=== PATIENT | male | born 1995 | race Caucasian/White ===

== ENCOUNTER 2018-07-24 22:04 | Inpatient (IN) | payer BC ==
[2018-07-24] MEDS ORDERED: ONDANSETRON 4 MG/2 ML VIAL IVP ONE (22:11)
[2018-07-24] MEDS ORDERED: NS 1,000 ML IV ONE ×2 (22:11)
--- NOTE | 2018-07-24 22:17 | EDPHY ---
H & P Stated Complaint: N/V, SYNCOPE Source: Patient - Personal History Current Tetanus Diphtheria and Acellular Pertussis (TDAP): Yes - Medical/Surgical History Other PMH: DENIES - Social History Smoking Status: Never smoked Time Seen by Provider: 07/24/18 22:16 HPI/ROS: HPI CHIEF COMPLAINT: Syncope HISTORY OF PRESENT ILLNESS: 23-year-old male, presents emergency room syncope. Patient was in the shower standing there is rather hot, felt like he was going to vomit and then had a syncopal episode he had head strike sustaining a right eyebrow laceration. Patient has been vomiting all day as well as diarrhea. This started around noon. He states multiple episodes of watery diarrhea and multiple episodes of nonbloody vomit. Some abdominal cramping. Also complains of some muscle aches and joint pain. No high fever. Denies chest pain or shortness of breath. No previous history of cardiac disease or syncope Past Medical History: Denies medical history Past Surgical History: No recent surgical history Social History: Denies drugs alcohol tobacco. Family History: Hypertension bother ROS REVIEW OF SYSTEMS: 10 Systems were reviewed and negative with the exception of the elements mentioned in the history of present illness. Exam Constitutional triage nursing summary reviewed, vital signs reviewed, awake/ alert. Eyes normal conjunctivae and sclera, EOMI, PERRLA. HENT normal inspection, atraumatic, moist mucus membranes, no epistaxis, neck supple/ no meningismus, no raccoon eyes. Respiratory clear to auscultation bilaterally, normal breath sounds, no respiratory distress, no wheezing. Cardiovascular rate normal, regular rhythm, no murmur, no edema, distal pulses normal. Gastrointestinal soft, non-tender, no rebound, no guarding, normal bowel sounds, no distension, no pulsatile mass. Genitourinary no CVA tenderness. Musculoskeletal no midline vertebral tenderness, full range of motion, no calf swelling, no tenderness of extremities, no meningismus, good pulses, neurovascularly intact. Skin pink, warm, & dry, no rash, skin atraumatic. Neurologic awake, alert and oriented x 3, AAOx3, moves all 4 extremities equally, motor intact, sensory intact, CN II-XII intact, normal cerebellar, normal vision, normal speech. Psychiatric normal mood/affect. Heme/Lymph/Immune no lymphadenopathy. Differential Diagnosis: Differential diagnosis includes but is not limited to: wpw, vasovagal syncope, dehydration. ACS, atypical chest pain, pneumothorax, pneumonia, pulmonary embolism, aortic dissection, congestive heart failure, tumor, musculoskeletal pain, esophageal pain, GERD, peptic ulcer disease, pancreatitis Medical Decision Making: Plan for this patient IV establishment IV fluid bolus , obtain EKG, electrolytes, CT scan head without contrast due to fall and trauma and head laceration, chest x-ray and re-evaluate. Re-evaluation: EKG interpretation by me on record in [employer] system. Impression time of EKG 2216, sinus tach [address] depression T-wave abnormalities inferior leads to 3 AVF abnormal T-wave inversions V1 V2 V3 ST depression V4 V5 V6 with T -wave inversion biphasic. Abnormal EKG no old EKG to compare this to. Dr. Sagastume with Cardiology consult reviewed this EKG agrees abnormal ekg. Plan for admission for syncope and abnormal EKG. Clinically most likely volume depleted. CT scan head without contrast negative for acute traumatic injury called to me by Dr. Pichardo. Chest x-ray reviewed negative. Patient's heart rate is coming down to 115. IV fluids. Blood work reviewed low magnesium. Will replete. Plan for admission the hospital for syncope an abnormal EKG. Cardiology has been consult. Patient updated. Laceration was repaired by [facility]ELDS. Consult the hospitalist service Dr. George Agrees to admit. Given that the patient has a positive D-dimer, abnormal EKG, tachycardia with syncope I have ordered a CT angiogram of the chest. Rule out pulmonary embolism. (Tu Bojorquez) Constitutional: Initial Vital Signs Temperature (C) 37.3 C 07/24/18 22:08 Heart Rate 139 H 07/24/18 22:08 Respiratory Rate 20 07/24/18 22:08 Blood Pressure 98/65 L 07/24/18 22:08 O2 Sat (%) 96 07/24/18 22:08 O2 Delivery Mode Room Air Allergies/Adverse Reactions: No Known Allergies Allergy (Unverified 07/24/18 22:07) Home Medications: Medication Instructions Recorded Acet/Caffeine/Buta Fioricet 1 each PO Q6 PRN #20 tab 07/26/18 [Fioricet (*)] Ondansetron Odt [Zofran Odt 4 mg 4 mg PO Q4 PRN #20 tab 07/26/18 (*)] Medical Decision Making Procedures: Procedure: Laceration repair. Verbal consent was obtained from the patient. The 2 cm, simple, superficial laceration on the inferior to the right eyebrow was not anesthetized in the usual fashion. The wound was irrigated, draped and explored to its base with a gloved finger. There were no deep structures involved. No tendon injury was identified. The wound was repaired with Dermabond. The procedure was performed by myself. (Jeni Alas) - Data Points Laboratory Results: Laboratory Results 07/25/18 03:14 07/25/18 03:14 Microbiology Results: MICROBIOLOGY 07/24/18 22:23 Blood Blood Culture - Preliminary 07/24/18 22:24 Blood Blood Culture - Preliminary Medications Given: Discontinued Medications Acetaminophen (Tylenol) 650 mg PO Q4HRS PRN PRN Reason: Pain, Mild/Fever, Can Take PO Stop: 01/20/19 23:18 Last Admin: 07/25/18 17:24 Dose: 650 mg Acetaminophen/Butalbital/Caffeine (Fioricet) 1 each PO Q6HRS PRN PRN Reason: Headache Stop: 08/04/18 19:01 Last Admin: 07/26/18 09:05 Dose: 1 each Sodium Chloride (Ns) 1,000 mls @ 0 mls/hr IV EDNOW ONE; Wide Open PRN Reason: Protocol Stop: 07/24/18 22:12 Last Admin: 07/24/18 22:20 Dose: 1,000 mls Sodium Chloride (Ns) 1,000 mls @ 0 mls/hr IV EDNOW ONE; Wide Open PRN Reason: Protocol Stop: 07/24/18 22:12 Last Admin: 07/24/18 22:20 Dose: 1,000 mls Magnesium Sulfate (Magnesium Sulf 2 Gm (Premix)) 50 mls @ 50 mls/hr IV EDNOW ONE Stop: 07/25/18 00:15 Last Admin: 07/24/18 23:31 Dose: 50 mls Sodium Chloride (Ns) 1,000 mls @ 75 mls/hr IV CONT LEV Stop: 01/20/19 23:29 Last Admin: 07/25/18 20:10 Dose: 1,000 mls Sodium Chloride (Ns) 500 mls @ 0 mls/hr IV ONCE ONE PRN Reason: Wide Open Stop: 07/25/18 01:51 Last Admin: 07/25/18 02:17 Dose: 500 mls Sodium Chloride (Ns) 500 mls @ 0 mls/hr IV ONCE ONE PRN Reason: Wide Open Stop: 07/25/18 03:55 Last Admin: 07/25/18 04:02 Dose: 500 mls Ondansetron HCl (Zofran) 4 mg IVP EDNOW ONE Stop: 07/24/18 22:12 Last Admin: 07/24/18 22:20 Dose: 4 mg Point of Care Test Results: Chemistry 07/24/18 22:27 POC Troponin I 0.01 ng/mL ng/mL (0.00-0.08) Departure - Departure Disposition: [facility] Inpatient Acute Clinical Impression: Abnormal EKG, Dehydration Syncope Qualifiers: Syncope type: unspecified Qualified Code(s): R55 - Syncope and collapse Laceration of head Qualifiers: Encounter type: initial encounter Location of open wound of head: periocular area Foreign body presence: without foreign body Laterality: right Qualified Code(s): S01.111A - Laceration without foreign body of right eyelid and periocular area, initial encounter Condition: Fair
[2018-07-24 22:34] LABS: PLATELET COUNT 180 10^3/uL (150-400)
[2018-07-24] MEDS ORDERED: SKIN ADHESIVE (DERMABOND) 1 EACH TP ONE (22:51)
[2018-07-24] MEDS ORDERED: MAGNESIUM SULF 2 GM/WATER 50 ML IV ONE (23:16)
[2018-07-24] MEDS ORDERED: ONDANSETRON 4 MG/2 ML VIAL IVP PRN (23:19)
[2018-07-24] MEDS ORDERED: ONDANSETRON DISINTEGRATING 4 MG TAB PO PRN (23:19)
[2018-07-25] MEDS ORDERED: IOPAMIDOL (ISOVUE 370) 100 ML BTL IV ONE (00:08)
[2018-07-25] MEDS ORDERED: NS 500 ML IV ONE ×2 (01:50→03:54)
--- NOTE | 2018-07-25 02:28 | PDGENHP ---
History and Physical - Chief Complaint Syncope - History of Present Illness 23 yo M presents after syncopal episode. He started feeling poorly earlier today. He noted mostly vomiting and diarrhea. He also noted fevers. He denies blood in his stool or vomit. He has had decreased PO intake. He was in the shower and suffered a syncopal episode. He denies chest pain with this. He feels improved after fluids but still feels a bit dizzy when he stands up. In the ED his ECG was significantly abnormal, so he is being admitted for observation. He has no prior personal history of cardiac disease although he does have positive family history. Case discussed with ED physician Dr. Michael; records reviewed and summarized above. History Information - Allergies/Home Medication List Allergies/Adverse Reactions: No Known Allergies Allergy (Unverified 07/24/18 22:07) Home Medications: NK [No Known Home Meds] 07/24/18 [Last Taken Unknown] I have personally reviewed and updated: family history, medical history - Past Medical History no pertinent PMH - Surgical History Additional surgical history: Oral surgery - Family History Positive for: CAD, hypertension - Social History Smoking Status: Never smoked Review of Systems Review of Systems: ROS: 10pt was reviewed & negative except for what was stated in HPI & below Physical Exam Physical Exam: Temp Pulse Resp BP Pulse Ox 38.0 C 104 H 16 135/56 H 93 07/25/18 01:37 07/25/18 01:37 07/25/18 01:37 07/25/18 01:37 07/25/18 01:37 Constitutional: not in pain Eyes: PERRL, EOMI Ears, Nose, Mouth, Throat: no oral mucosal ulcers Cardiovascular: no murmur, rub, or gallop, tachycardia Respiratory: no respiratory distress, clear to auscultation Gastrointestinal: normoactive bowel sounds, soft, non-tender abdomen Skin: warm, normal color Musculoskeletal: full muscle strength, no muscle tenderness Neurologic: AAOx3, CN II-XII Intact Psychiatric: interacting appropriately, not anxious Lab Data & Imaging Review 07/24/18 22:24 07/24/18 22:24 WBC 9.38 10^3/uL (3.80-9.50) 07/24/18 22:24 RBC 5.45 10^6/uL (4.40-6.38) 07/24/18 22:24 Hgb 16.5 g/dL (13.7-17.5) 07/24/18 22:24 Hct 46.9 % (40.0-51.0) 07/24/18 22:24 MCV 86.1 fL (81.5-99.8) 07/24/18 22:24 MCH 30.3 pg (27.9-34.1) 07/24/18 22:24 MCHC 35.2 g/dL (32.4-36.7) 07/24/18 22:24 RDW 11.9 % (11.5-15.2) 07/24/18 22:24 Plt Count 180 10^3/uL (150-400) 07/24/18 22:24 MPV 9.5 fL (8.7-11.7) 07/24/18 22:24 Neut % (Auto) 90.9 % (39.3-74.2) H 07/24/18 22:24 Lymph % (Auto) 3.2 % (15.0-45.0) L 07/24/18 22:24 [place] % (Auto) 5.0 % (4.5-13.0) 07/24/18 22:24 Eos % (Auto) 0.2 % (0.6-7.6) L 07/24/18: Baso % (Auto) 0.3 % (0.3-1.7) 07/24/18: Nucleat RBC Rel Count 0.0 % (0.0-0.2) 07/24/18 22:24 Absolute Neuts (auto) 8.53 10^3/uL (1.70-6.50) H 07/24/18 22:24 Absolute Lymphs (auto) 0.30 10^3/uL (1.00-3.00) L 07/24/18 22:24 Absolute Monos (auto) 0.47 10^3/uL (0.30-0.80) 07/24/18 22:24 Absolute Eos (auto) 0.02 10^3/uL (0.03-0.40) L 07/24/18 22:24 Absolute Basos (auto) 0.03 10^3/uL (0.02-0.10) 07/24/18 22:24 Absolute Nucleated RBC 0.00 10^3/uL (0-0.01) 07/24/18 22:24 Immature Gran % 0.4 % (0.0-1.1) 07/24/18 22:24 Immature Gran # 0.04 10^3/uL (0.00-0.10) 07/24/18 22:24 RBC/WBC/PLT Morphology TNP 07/24/18 22:24 Platelet Estimate TNP 07/24/18 22:24 D-Dimer 0.64 ug/mLFEU (0.00-0.50) H 07/24/18 22:24 Sodium 134 mEq/L (135-145) L 07/24/18 22:24 Potassium 4.0 mEq/L (3.5-5.2) 07/24/18 22:24 Chloride 101 mEq/L (97-110) 07/24/18 22:24 Carbon Dioxide 22 mEq/l (22-31) 07/24/18 22:24 Anion Gap 11 mEq/L (6-14) 07/24/18 22:24 BUN 18 mg/dL (7-23) 07/24/18 22:24 Creatinine 0.9 mg/dL (0.7-1.3) 07/24/18 22:24 Estimated GFR > 60 07/24/18 22:24 Glucose 122 mg/dL (70-100) H 07/24/18 22:24 Calcium 10.0 mg/dL (8.5-10.4) 07/24/18 22:24 Magnesium 1.4 mg/dL (1.6-2.3) L 07/24/18 22:24 Total Bilirubin 1.5 mg/dL (0.1-1.4) H 07/24/18 22:24 Conjugated Bilirubin 0.4 mg/dL (0.0-0.5) 07/24/18 22:24 Unconjugated Bilirubin 1.1 mg/dL (0.0-1.1) 07/24/18 22:24 AST 26 IU/L (17-59) 07/24/18 22:24 ALT 30 IU/L (21-72) 07/24/18 22:24 Alkaline Phosphatase 90 IU/L (38-126) 07/24/18 22:24 POC Troponin I 0.01 ng/mL (0.00-0.08) 07/24/18 22:27 Total Protein 8.1 g/dL (6.3-8.2) 07/24/18 22:24 Albumin 5.0 g/dL (3.5-5.0) 07/24/18 22:24 Lipase 55 IU/L (23-300) 07/24/18 22:24 Nasal Influenza A PCR NEGATIVE FOR FLU A (NEGATIVE) 07/24/18 22:20 Nasal Influenza B PCR NEGATIVE FOR FLU B (NEGATIVE) 07/24/18 22:20 Monoscreen NEGATIVE (NEGATIVE) 07/25/18 00:07 Imaging Review: Imaging Impressions Head CT 07/24/18 22:15 Impression: Normal noncontrast CT of the brain. Results called to Dr. Crow Michael at 10:45 PM at the time of the interpretation. Chest X-Ray 07/24/18 22:17 Impression: Negative portable chest. Assessment & Plan Assessment: 23 yo M w/ viral syndrome presents with syncope noted to have abnormal ECG. Plan: 1. Syncope - Most likely due to hypovolemia noting vomiting/diarrhea and poor PO intake. He continues to me mildly dizzy upon standing. His ECG, however, is markedly abnormal for a young healthy patient. ECG demonstrates (personally reviewed/interpreted) sinus tachycardia with diffuse ST depressions. The patient denies chest pain or palpitations. - Admit for observation - Monitor on telemetry - TTE ordered for further evaluation - Cardiology consulted in the ED (Dr. Sagastume), will see patient in the morning 2. Fever, vomiting, diarrhea - Most likely due to viral syndrome. - Continue IVF - Respiratory PCR, GI PCR, procalcitonin ordered 3. Hyponatremia - Mild, 2/2 dehydration. - Repeat BMP after IVF Diet - Regular Code - Full Ppx - Low risk, ambulate TID Dispo - Admit under observation status
[2018-07-25] MEDS: NS 1,000 ML IV SCH ×3 (03:42→20:10)
[2018-07-25 04:38] LABS: PLATELET COUNT 169 10^3/uL (150-400)
[2018-07-25] MEDS: ACETAMINOPHEN 325 MG TAB PO PRN ×2 (10:02→17:24)
--- NOTE | 2018-07-25 10:19 | ECHO ---
[email or web address] [address] Main: [phone] Fax: Transthoracic Echocardiogram Name: NEFTALY MEJIA MR#: [id number] Study Date: 07/25/2018 Study Time: 09:19 AM Date of : 1995 Age: 23 year(s) Height: 185.4 cm (73 in.) Weight: 81.65 kg (180 lb.) BSA: 2.06 m2 Gender: Male Examination: Echo Indication: Cardiac: syncope, abnl ecg Image Quality: Adequate Contrast: Requested by: Arsalan Garcia BP: 111 mmHg/56 mmHg Heart Rate: Rhythm: Indication: Cardiac: syncope, abnl ecg Procedure Staff Pocket Setter: Chrissy Benitez [facility] Reading Physician: Vitor Garnica MD Requesting Provider: Conclusions: Normal size left ventricle. No LV hypertrophy. Normal global systolic LV function. EF is 67 %. No regional wall motion abnormality. Normal diastolic LV function. Normal size right ventricle. The left atrium is normal in size. The mitral valve is normal in appearance and function. Trivial mitral valve regurgitation. The aortic valve is normal in appearance and function. There is no aortic valve regurgitation. The tricuspid valve is normal in appearance and function. Trivial to mild tricuspid valve regurgitation. Right ventricular systolic pressure measures 19mmHg. There is no pulmonic regurgitation seen. Normal size ascending aorta measuring 3.2 cm. No pericardial effusion. Measurements: Chambers Valvular Assessment AV/MV Valvular Assessment TV/PV Normal Normal Normal Name Value Range Name Value Range Name Value Range Ao Keysha (MM): 3.4 cm (2.2 cm-3.7 AV Vmax: 1.19 m/s (1 m/s-1.7 TR Vmax: 1.89 mm/s ( - ) cm) m/s) TR PGmax: 14 mmHg ( - ) IVSd (2D): 1.0 cm (0.6 cm-1.1 AV maxP mmHg ( - ) syst. PAP: 19 mmHg ( - ) cm) LVOT Vmax: 1.12 m/s (0.7 m/s-1.1 PV Vmax: 1.03 m/s (0.6 m/s-0.9 LVDd (2D): 4.5 cm (4.2 cm-5.9 m/s) m/s) cm) BUCKY (Vmax): 3.9 cm2 ( - ) PV PGmax: 4 mmHg ( - ) MV E Vmax: 0.80 m/s ( - ) Patient: NEFTALY MEJIA Study Date: 07/25/2018 Page 1 of 2 09:19 AM LVDs (2D): 2.9 cm (2.1 cm-4 MV A Vmax: 0.64 m/s ( - ) cm) MV E/A: 1.25 ( - ) LVPWd (2D): 0.9 cm (0.6 cm-1 cm) LVOTd 2.3 cm 2.3 cm mm LVEF (BP): 67 % (>=55 %) RVDd(2D): 4.0 cm (1.9 cm-3.8 cmmm) Continued Measurements: Chambers Valvular Assessment AV/MV Valvular Assessment TV/PV Name Value Name Value Name Value LADs: 3.2 cm MV DecTime: 114 m/s CVP (est.): 5 mmHg LADs Lon.5 cm MV E' Septal: 0.13 m/s LA Area: 12.7 cm2 MV E/E' Septal: 6.20 LA Volume: 43 ml MV E/E' Lateral: 3.90 LA Volume Index: 20.9 ml/m2 TAPSE: 2.4 cm Additional Vessels Name Value Ao Ascendin.2 cm Findings: Left Ventricle: Normal size left ventricle. No LV hypertrophy. Normal global systolic LV function. EF is 67 %. No regional wall motion abnormality. Normal diastolic LV function. Right Ventricle: Normal size right ventricle. Normal RV function. Left Atrium: The left atrium is normal in size. Right Atrium: The right atrium is normal in size. Mitral Valve: The mitral valve is normal in appearance and function. Trivial mitral valve regurgitation. No mitral stenosis is present. Aortic Valve: The aortic valve is normal in appearance and function. There is no aortic valve regurgitation. No aortic valve stenosis is present. Tricuspid Valve: The tricuspid valve is normal in appearance and function. Trivial to mild tricuspid valve regurgitation. Right ventricular systolic pressure measures 19mmHg. The pulmonary artery pressure is normal. Pulmonic Valve: The pulmonic valve is normal in appearance and function. There is no pulmonic regurgitation seen. Aorta: The aorta is normal. Normal size aortic root measuring 3.4 cm. Normal size ascending aorta measuring 3.2 cm. IVC: Normal size and course of the IVC. Pericardium: No pericardial effusion. (No Signature Object) Patient: NEFTALY MEJIA Study Date: 07/25/2018 Page 2 of 2 09:19 AM [id number]
--- NOTE | 2018-07-25 10:25 | PDCARCONS ---
Cardiology Consult Reason for Consult: Syncope Chief Complaint: Syncope and lightheadedness Requesting Physician: Hospitalist team History of Present Illness: Patient is a 23 y/o male with unremarkable past medical/cardiovascular history, who presented to the ER at [facility] via private transport (mother) after syncopal event at home. Patient had been feeling well until yesterday, when malaise and lightheadedness was noted. Vomiting and nausea have also been noted. Mother reported that the patient had had diarrhea as well. Fevers had been noted. All these symptoms were noted within the past 48 hours. Notable decrease in oral intake had been noted in the setting of feeling poorly. While taking a shower, the patient passed out, and this led to a trip to the ER. No complaints of chest pains or pressure. No PND or orthopnea. ECG in the ER was reportedly "abnormal" with ST/T wave changes noted - not dynamic suggestive of ACS. At present, the patient continues to feel poorly. Fever was noted earlier this morning, but temp has come down. On telemetry, aforementioned ST/T wave changes were noted, and a 12 lead ECG was performed (with what appears to be LVH and sinus tachycardia, rather than concern of atrial flutter - which was thought on appliance technician). Echocardiogram without kajal pathology noted - including an absence of left ventricular hypertrophy Remainder of the 12 point review of systems was unremarkable. History Information - Allergies/Home Medication List Allergies/Adverse Reactions: No Known Allergies Allergy (Unverified 07/24/18 22:07) Home Medications: NK [No Known Home Meds] 07/24/18 [Last Taken Unknown] I have personally reviewed and updated: family history, medical history, social history, surgical history Past Medical History: - Past Medical History no pertinent PMH - Surgical History Reports: no pertinent surgical hx - Family History Positive for: hypertension - Social History Smoking Status: Never smoked Alcohol Use: None Drug Use: None Cardiac History - Cardiac History Cardiac Risk Factors: male Timing/Duration: Days Severity: moderate Severity Scale: 7 Location: epigastric Activities at Onset: activity Modifying Factors: improves with: lying down, rest Associated Symptoms: fever/chills, malaise, nausea/vomiting, syncope, weakness Physical Exam Physical Exam: Temp Pulse Resp BP Pulse Ox 37.8 C 92 16 118/51 L 92 07/25/18 07:16 07/25/18 07:16 07/25/18 07:16 07/25/18 07:16 07/25/18 07:16 Constitutional: no apparent distress, appears nourished, not in pain, uncomfortable Eyes: PERRL, EOMI Ears, Nose, Mouth, Throat: moist mucous membranes Cardiovascular: no murmur, rub, or gallop, tachycardia, No JVD, No edema Peripheral Pulses: 2+: dorsalis-pedis (R), dorsalis-pedis (L) Respiratory: no respiratory distress, no rales or rhonchi, clear to auscultation Gastrointestinal: normoactive bowel sounds Skin: warm, No rash Musculoskeletal: full muscle strength, no muscle tenderness Neurologic: AAOx3, sensation intact bilaterally Psychiatric: interacting appropriately, not anxious, not encephalopathic Lab and Imaging 07/25/18 03:14 07/25/18 03:14 WBC 6.83 10^3/uL (3.80-9.50) 07/25/18 03:14 RBC 4.69 10^6/uL (4.40-6.38) 07/25/18 03:14 Hgb 13.9 g/dL (13.7-17.5) 07/25/18 03:14 Hct 41.0 % (40.0-51.0) 07/25/18 03:14 MCV 87.4 fL (81.5-99.8) 07/25/18 03:14 MCH 29.6 pg (27.9-34.1) 07/25/18 03:14 MCHC 33.9 g/dL (32.4-36.7) 07/25/18 03:14 RDW 11.9 % (11.5-15.2) 07/25/18 03:14 Plt Count 169 10^3/uL (150-400) 07/25/18 03:14 MPV 10.1 fL (8.7-11.7) 07/25/18 03:14 Neut % (Auto) 91.0 % (39.3-74.2) H 07/25/18 03:14 Lymph % (Auto) 4.4 % (15.0-45.0) L 07/25/18 03:14 [place] % (Auto) 4.2 % (4.5-13.0) L 07/25/18 03:14 Eos % (Auto) 0.0 % (0.6-7.6) L 07/25/18 03:14 Baso % (Auto) 0.1 % (0.3-1.7) L 07/25/18 03:14 Nucleat RBC Rel Count 0.0 % (0.0-0.2) 07/25/18 03:14 Absolute Neuts (auto) 6.22 10^3/uL (1.70-6.50) 07/25/18 03:14 Absolute Lymphs (auto) 0.30 10^3/uL (1.00-3.00) L 07/25/18 03:14 Absolute Monos (auto) 0.29 10^3/uL (0.30-0.80) L 07/25/18 03:14 Absolute Eos (auto) 0.00 10^3/uL (0.03-0.40) L 07/25/18 03:14 Absolute Basos (auto) 0.01 10^3/uL (0.02-0.10) L 07/25/18 03:14 Absolute Nucleated RBC 0.00 10^3/uL (0-0.01) 07/25/18 03:14 Immature Gran % 0.3 % (0.0-1.1) 07/25/18 03:14 Immature Gran # 0.02 10^3/uL (0.00-0.10) 07/25/18 03:14 RBC/WBC/PLT Morphology TNP 07/25/18 03:14 Platelet Estimate TNP 07/25/18 03:14 D-Dimer 0.64 ug/mLFEU (0.00-0.50) H 07/24/18 22:24 Sodium 135 mEq/L (135-145) 07/25/18 03:14 Potassium 3.9 mEq/L (3.5-5.2) 07/25/18 03:14 Chloride 107 mEq/L (97-110) 07/25/18 03:14 Carbon Dioxide 22 mEq/l (22-31) 07/25/18 03:14 Anion Gap 6 mEq/L (6-14) 07/25/18 03:14 BUN 16 mg/dL (7-23) 07/25/18 03:14 Creatinine 0.8 mg/dL (0.7-1.3) 07/25/18 03:14 Estimated GFR > 60 07/25/18 03:14 Glucose 100 mg/dL (70-100) 07/25/18 03:14 Calcium 8.4 mg/dL (8.5-10.4) L 07/25/18 03:14 Magnesium 1.4 mg/dL (1.6-2.3) L 07/24/18 22:24 Total Bilirubin 1.5 mg/dL (0.1-1.4) H 07/24/18 22:24 Conjugated Bilirubin 0.4 mg/dL (0.0-0.5) 07/24/18 22:24 Unconjugated Bilirubin 1.1 mg/dL (0.0-1.1) 07/24/18 22:24 AST 26 IU/L (17-59) 07/24/18 22:24 ALT 30 IU/L (21-72) 07/24/18 22:24 Alkaline Phosphatase 90 IU/L (38-126) 07/24/18 22:24 POC Troponin I 0.01 ng/mL (0.00-0.08) 07/24/18 22:27 Total Protein 8.1 g/dL (6.3-8.2) 07/24/18 22:24 Albumin 5.0 g/dL (3.5-5.0) 07/24/18 22:24 Lipase 55 IU/L (23-300) 07/24/18 22:24 Procalcitonin 0.14 ng/mL (0.02-0.10) H 07/25/18 03:14 Nasal Influenza A PCR NEGATIVE FOR FLU A (NEGATIVE) 07/24/18 22:20 Nasal Influenza B PCR NEGATIVE FOR FLU B (NEGATIVE) 07/24/18 22:20 Monoscreen NEGATIVE (NEGATIVE) 07/25/18 00:07 Visualized and Interpreted Chest x-ray results: Yes Chest X-ray Interpretation: no infiltrate Visualized and Interpreted EKG results: Yes EKG Interpretation: Positive for: normal sinsus rhythm, NS ST wave abnormalities Telemetry: sinus tachycardia Echocardiogram: normal LVEF with normal chamber dimensions A/P Assessment: 23 y/o male with unremarkable past medical/cardiovascular history, with syncope and tachycardia. Fevers, chills, nausea, and emesis have been noted. Signs and symptoms suggestive of viral infection. Flu swab was reportedly negative, but clinically, this is the patient's appearance. Echocardiogram was grossly normal. ECG with continued "abnormal" T wave pattern. Twelve lead ECG with appearance of sinus tachycardia (which follows with dehydration and viral syndrome). Plan: Would continue as present with conservative management - IV fluids. Consider addition of Tylenol for fevers for the time being. Consideration for 30 day monitor in the outpatient setting given reports that ECG in the past was "abnormal". We will follow this patient while in house.
--- NOTE | 2018-07-25 13:25 | HOSPPROG ---
Hospitalist Progress Note Assessment/Plan: 1. Syncope - Most likely due to hypovolemia noting vomiting/diarrhea and poor PO intake. He continues to me mildly dizzy upon standing. His ECG, however, is markedly abnormal for a young healthy patient. ECG demonstrates (personally reviewed/interpreted) sinus tachycardia with diffuse ST depressions. The patient denies chest pain or palpitations. -Cont IVF -Cards has consulted, no indication for further procedures. They do recommend op holter monitor -TTE unremarkable, Trops unremarkable 2. Sinus Tachycardia 3. Fever, suspect viral syndrome 4. Vomiting/diarrhea 5. Hyponatremia - Mild, 2/2 dehydration. Diet - Regular Code - Full Ppx - Low risk, ambulate TID Plan: cont IVF cont telemetry change to inpatient, still weak, symptomatic, with tachycardia and diarrhea repeat resp panel obtain stool sample for GI PCR Studies: TTE unremarkable, no LVH CTA chest negative CXR: negative for pneumonia CT Brain: negative EKG, per above Subjective: still with diarrhea. Still with tachycardia. no cp or sob. Objective: Vital Signs Temp Pulse Resp BP Pulse Ox 37.7 C 88 17 112/54 L 94 07/25/18 11:58 07/25/18 11:58 07/25/18 11:58 07/25/18 11:58 07/25/18 11:58 Microbiology 07/25/18 02:20 Respiratory Panel (PCR) - Final Nasal, Sinus - Swab No Organism Detected By Pcr Laboratory Results 07/25/18 03:14 07/25/18 03:14 07/24/18 07/25/18 07/26/18 05:59 05:59 05:59 Intake Total 1999 350 Balance 1999 350 - Physical Exam Constitutional: no apparent distress Eyes: PERRL, EOMI Ears, Nose, Mouth, Throat: moist mucous membranes, hearing normal, ears appear normal Cardiovascular: regular rate and rhythym Respiratory: no respiratory distress, no rales or rhonchi, clear to auscultation Gastrointestinal: normoactive bowel sounds, soft, non-tender abdomen Skin: warm Neurologic: AAOx3 Psychiatric: interacting appropriately, not anxious, not encephalopathic Lymph, Heme, Immunologic: No petechiae ICD10 Worksheet Patient Problems: Problems Problem Status Onset Abnormal EKG Acute Dehydration Acute Laceration of head Acute Syncope Acute
--- NOTE | 2018-07-25 14:22 | ASMTCMCOM ---
CM Note CM Note Notes: Pts case discussed in tx rounds. Pt is a 23 y/o male admitted for abdominal ekg and syncope. Pt will most likely d/c independent when medically stable. No therapies ordered at this time. CM available for changes. Plan: Independent Date Signed: 07/25/2018 02:22 PM Electronically Signed By:MARC Thomas
--- NOTE | 2018-07-25 16:12 | PDMN ---
Medical Necessity Medical necessity: MCG: M340 syncope: pt with persistent tachycardia ECG shows sinus tach with diffuse ST depressions, pt is dizzy with ambulation's, fever, N/ V/D, hyponatremic, status changed to INPT 07/25/18 for ongoing med nec care- further monitoring and tx of above
[2018-07-25] MEDS: ACET/CAFFEINE/BUTA FIORICET 1 EACH TAB PO PRN (19:20)
[2018-07-26] MEDS: ACET/CAFFEINE/BUTA FIORICET 1 EACH TAB PO PRN (09:05)
[2018-07-26 12:42] VITALS: BP 126/65
--- NOTE | 2018-07-26 14:09 | PDDCSUM ---
Discharge Summary Discharge Summary: 23 yo male who had a syncopal episode and abnormal EKG. He was admitted. Cardiology was consulted. He had a negative CV w/u. Cards recommends f/u with Cardiology for Holter monitor. He is no longer symptomatic. Stool is positive for Roto virus. He is no longer dehydrated. DDX: 1. Syncope - Most likely due to hypovolemia noting vomiting/diarrhea and poor PO intake. He continues to me mildly dizzy upon standing. His ECG, however, is markedly abnormal for a young healthy patient. ECG demonstrates (personally reviewed/interpreted) sinus tachycardia with diffuse ST depressions. The patient denies chest pain or palpitations. -Cards has consulted, no indication for further procedures. They do recommend op holter monitor -TTE unremarkable, Trops unremarkable 2. Sinus Tachycardia 3. Fever, due to virus 4. Vomiting/diarrhea, vomiting resolved. still with intermittent diarrhea but better 5. Hyponatremia - resolved Studies: TTE unremarkable, no LVH CTA chest negative CXR: negative for pneumonia CT Brain: negative EKG, per above Meds: see med rec Exam: NAD AAOX3 RRR CTA B S/NT/ND F/U: WITH PCP NEXT WEEK. WITH CARDS FOR HOLTER MONITOR TOTAL TIME SPENT ON D/C IS 35 MINS
--- NOTE | 2018-07-26 19:15 | ASMTLACE ---
CONNIE Length of stay for Answers: 1 day current admission Acuity / Level of Answers: Yes Care: Did the patient have an inpatient admission? # of Emergency department Answers: 1-2 visits in the last 6 months Score: 5 Date Signed: 07/26/2018 07:15 PM Electronically Signed By:Bailey Gomez RN
--- NOTE | 2018-07-26 19:19 | ASDISCHSUM ---
Discharge Information Plan Status:Home with No Needs Medically Cleared to Leave:07/25/2018 Discharge Date:07/26/2018 05:15 PM CM D/C Disposition:Home, Routine, Self-Care ADT D/C Disposition:Home, Routine, Self-Care Projected Discharge Date:07/26/2018 05:15 PM Transportation at D/C:Family Discharge Delay Reason: Follow-Up Date:07/26/2018 05:15 PM Discharge Slot:2 - 12:01 pm - 18:00 pm Final Diagnosis:Abnormal EKG, syncope, norovirus, fever Placement Information Patient Contact Information Contact Name:VIKRAM Relationship:Mother Address:[address] City:[place] Alternate Phone: State/Zip Code:[place] [address] Email: Financial Information Financial Class:BCOP Primary Plan Desc: OUT OF STATE [facility] Primary Plan Number:[id number] Secondary Plan Desc: Secondary Plan Number: Assessment Information LACE LACE Length of stay for Answers: 1 day current admission Acuity / Level of Answers: Yes Care: Did the patient have an inpatient admission? # of Emergency department Answers: 1-2 visits in the last 6 months Score: 5 Date Signed: 07/26/2018 07:15 PM Electronically Signed By:Bailey Gomez RN [facility] CM Progress Note CM Note CM Note Notes: Pts case discussed in tx rounds. Pt is a 23 y/o male admitted for abdominal ekg and syncope. Pt will most likely d/c independent when medically stable. No therapies ordered at this time. CM available for changes. Plan: Independent Date Signed: 07/25/2018 02:22 PM Electronically Signed By:MARC Thomas [facility] Progress Note CM Note CM Note Notes: Reviewed chart, spoke with MABLE Hercules. Per Dr. Qureshi, pt to discharge home independently today with no identified needs. Pt to follow up as directed. No IM/DIXON forms signed, not applicable. CM available for any further issues or concerns. Discharge Plan: Home independently Date Signed: 07/26/2018 07:17 PM Electronically Signed By:Bailey Gomez RN Intervention Information
--- NOTE | 2018-07-27 07:44 | CPEKG ---
Test Reason : OPEN Blood Pressure : / mmHG Vent. Rate : 103 BPM Atrial Rate : 103 BPM P-R Int : 152 ms QRS Dur : 102 ms QT Int : 326 ms P-R-T Axes : 069 100 -46 degrees QTc Int : 427 ms Sinus tachycardia Right atrial enlargement Borderline right axis deviation Abnrm T, consider ischemia, anterolateral lds Confirmed by Tu Bojorquez ([id number]) on 07/27/2018 7:44:16 AM Referred By: Confirmed By:Tu Bojorquez
--- NOTE | 2018-07-27 08:48 | CPEKG ---
Test Reason : OPEN Blood Pressure : / mmHG Vent. Rate : 091 BPM Atrial Rate : 091 BPM P-R Int : 176 ms QRS Dur : 105 ms QT Int : 368 ms P-R-T Axes : 058 099 -14 degrees QTc Int : 453 ms Sinus rhythm Consider RVH w/ secondary repol abnormality Abnormal T, consider ischemia, lateral leads Borderline ST elevation, anterior leads Confirmed by Vitor Garnica ([id number]) on 07/27/2018 8:48:25 AM Referred By: Confirmed By:Vitor Garnica
--- NOTE | 2018-07-27 09:02 | CPEKG ---
Test Reason : OPEN Blood Pressure : / mmHG Vent. Rate : 092 BPM Atrial Rate : 092 BPM P-R Int : 161 ms QRS Dur : 103 ms QT Int : 336 ms P-R-T Axes : 048 093 -28 degrees QTc Int : 416 ms Sinus rhythm Borderline right axis deviation Probable left ventricular hypertrophy Abnormal T, consider ischemia, diffuse leads Confirmed by Vitor Garnica ([id number] on 07/27/2018 9:01:37 AM Referred By: Confirmed By:Vitor Garnica
== END 2018-07-26 17:15 | disposition home or self-care (01) | DRG 312 ==
LOC: F2W 07-25 01:07 → OBSVTOIN 07-25 13:21
PROVIDERS: ADMIT Student in an Organized Health Care Education/Training Program; ATTEND Student in an Organized Health Care Education/Training Program
PROC: 0HQ1XZZ Repair Face Skin, External Approach (ICD-10-PCS; principal; 2018-07-25)
DX: R55 Syncope and collapse (principal); R94.31 Abnormal electrocardiogram [ECG] [EKG]; E87.1 Hypo-osmolality and hyponatremia; R00.0 Tachycardia, unspecified; B97.89 Other viral agents as the cause of diseases classified elsewhere; S01.111A Laceration without foreign body of right eyelid and periocular area, initial encounter; W19.XXXA Unspecified fall, initial encounter; Y92.012 Bathroom of single-family (private) house as the place of occurrence of the external cause; Y93.E1 Activity, personal bathing and showering
CPT/HCPCS: 84484-ER; 96374; G0378; J2405; J3475; Q9967